=== PATIENT | female | born 1945 | race Caucasian/White ===

== ENCOUNTER 2021-03-21 19:19 | Emergency (ER) | payer MEDICARE ==
[~2021-03-21] VITALS: Ht 172.7 cm; Wt 65.0 kg
[2021-03-21 19:48] VITALS: BP 151/101
[2021-03-21] MEDS ORDERED: CEPH500T PO (21:31)
--- NOTE | 2021-03-21 21:32 | PHYS DOC ---
Past History Past Surgical History: No Surgical History Alcohol Use: Rarely General Adult EDM: Chief Complaint: INSECT BITE HPI: HPI: Patient is a 75-year-old female who presents with bug bite to her left foot. Patient has redness, warmth, swelling to right great toe. Patient states she noticed symptoms this morning. Denies fever. Patient does report tenderness but denies anything for pain. Review of Systems: Review of Systems: Constitutional: Denies fever or chills Eyes: Denies change in visual acuity HENT: Denies nasal congestion or sore throat Respiratory: Denies cough or shortness of breath Cardiovascular: Denies chest pain or edema GI: Denies abdominal pain, nausea, vomiting, bloody stools or diarrhea : Denies dysuria Musculoskeletal: Denies back pain or joint pain Integument: Red and swelling to right great toe Neurologic: Denies headache, focal weakness or sensory changes Endocrine: Denies polyuria or polydipsia Lymphatic: Denies swollen glands Psychiatric: Denies depression or anxiety Allergies: Allergies: Allergies Coded Allergies Type Severity Reaction Last Updated Verified Penicillins Allergy Unknown 03/21/21 Yes Physical Exam: PE: Constitutional: Well developed, well nourished, no acute distress, non-toxic appearance. [] HENT: Normocephalic, atraumatic, bilateral external ears normal, oropharynx moist, no oral exudates, nose normal. [] Eyes: PERRLA, EOMI, conjunctiva normal, no discharge. [] Neck: Normal range of motion, no tenderness, supple, no stridor. [] Cardiovascular:Heart rate regular rhythm, no murmur [] Lungs & Thorax: Bilateral breath sounds clear to auscultation [] Abdomen: Bowel sounds normal, soft, no tenderness, no masses, no pulsatile masses. [] Skin: Warm, red, swollen, right great toe Back: No tenderness, no CVA tenderness. [] Extremities: No tenderness, no cyanosis, no clubbing, ROM intact, no edema. [] Neurologic: Alert and oriented X 3, normal motor function, normal sensory function, no focal deficits noted. [] Psychologic: Affect normal, judgement normal, mood normal. [] Current Patient Data: Vital Signs: Vital Signs Date Time Temp Pulse Resp B/P (MAP) Pulse Ox O2 Delivery O2 Flow Rate FiO2 03/21/21 19:48 97.8 100 18 151/101 98 EKG: EKG: [] Radiology/Procedures: Radiology/Procedures: [] Heart Score: C/O Chest Pain: No Risk Factors: Risk Factors: DM, Current or recent (<one month) smoker, HTN, HLP, family history of CAD, obesity. Risk Scores: Score 0 - 3: 2.5% MACE over next 6 weeks - Discharge Home Score 4 - 6: 20.3% MACE over next 6 weeks - Admit for Clinical Observation Score 7 - 10: 72.7% MACE over next 6 weeks - Early Invasive Strategies Course & Med Decision Making: Course & Med Decision Making Pertinent Labs and Imaging studies reviewed. (See chart for details) [] 75-year-old female presents with a bug bite to her left foot. Patient has redness, warmth and swelling to her right great toe. Patient states that she noticed she had been bit by something this morning. Patient does report some tenderness to the area. Denies needing anything for pain at this time. Patient given 1 dose of Keflex while in the emergency room. Patient sent home with a prescription for Keflex. Patient instructed to take antibiotic as prescribed. Ibuprofen and Tylenol at home for discomfort. Patient given strict return precautions and signs of infection. Patient is hemodynamically stable upon discharge Dragon Disclaimer: Elza Disclaimer: This electronic medical record was generated, in whole or in part, using a voice recognition dictation system. Departure Departure: Impression: Primary Impression: Cellulitis Qualified Codes: L03.818 - Cellulitis of other sites Disposition: HOME / SELF CARE / HOMELESS Condition: STABLE Referrals: PCP,UNKNOWN (PCP) Patient Instructions: Cellulitis, [id number] Additional Instructions: You are seen in the emergency room for a bite to your left, great toe. You were given a dose of antibiotic while in the emergency room. Please take antibiotic as directed. Return to emergency room if you have worsening symptoms or concerns. EMERGENCY DEPARTMENT GENERAL DISCHARGE INSTRUCTIONS Thank you for coming to [facility] (ED) today and trusting us with you care. We trust that you had a positivie experience in our Emergency Department. If you wish to speak to the department management, you may call the director at [phone]. YOUR FOLLOW UP INSTRUCTIONS ARE FOLLOWS: 1. Do you have a private Doctor? If you do not have a private doctor, please ask for a resource list of physicians or clinics that may be able to assist you with follow up care. 2. The Emergency Physician has interpreted your x-rays. The X-Ray specialist will also review them. If there is a change in the findings, you will be notified in 48 hours when at all possible. 3. A lab test or culture has been done, your results will be reviewed and you will be notified if you need a change in treatment. ADDITIONAL INSTRUCTIONS AND INFORMATION: 1. Your care today has been supervised by a physician who is specially trained in emergency care. Many problems require more than one evaluation for a complete diagnosis and treatment. We recommend that you schedule your follow up appointment as recommended to ensure complete treatment of you illness or injury. If you are unable to obtain follow up care and continue to have a problem, or if your condition worsens, we recommend that you return to the ED. 2. We are not able to safely determine your condition over the phone nor are we able to give sound medical advice over the phone. For these safety reasons, if you call for medical advice we will ask you to come to the ED for further evaluation. 3. If you have any questions regarding these discharge instructions please call the ED at [phone]. SAFETY INFORMATION: In the interest of safety, wellness, and injury prevention; we encourage you to wear your sealbelt, if you smoke; quite smoking, and we encourage family to use a protective helmet for bicycling and other sporting events that present an increased risk for head injury. IF YOUR SYMPTOMS WORSEN OR NEW SYMPTOMS DEVELOP, OR YOU HAVE CONCERNS ABOUT YOUR CONDITION; OR IF YOUR CONDITION WORSENS WHILE YOU ARE WAITING FOR YOUR FOLLOW UP APPOINT MENT; EITHER CONTACT YOUR PRIMARY CARE DOCTOR, THE PHYSICIAN WHOSE NAME AND NUMBER YOU WERE GIVEN, OR RETURN TO THE ED IMMEDIATELY. Scripts Cephalexin (CEPHALEXIN) 500 Mg Tablet 1 TAB PO BID for infection for 5 Days, #10 TAB Prov: NOHEMI ADLER APRN 03/21/21 NOHEMI ADLER APRN Mar 21, 2021 21:32
[2021-03-21] MEDS ORDERED: CEPHALEXIN 250 MG CAPSULE PO ONE (22:00)
== END 2021-03-21 22:12 | disposition home or self-care (01) ==
LOC: ER 19:19
DX: L03.031 Cellulitis of right toe (principal); Z88.0 Allergy status to penicillin
CPT/HCPCS: 99283